=== PATIENT | female | born 1955 | race Caucasian/White ===

== ENCOUNTER 2018-07-18 10:48 | Emergency (ER) | payer MEDICAID ==
[~2018-07-18] VITALS: Ht 154.9 cm; Wt 98.0 kg
[2018-07-18 10:59] VITALS: Ht 154.9 cm; Wt 98.0 kg
[2018-07-18 14:02] LABS: UA SPECIFIC GRAVITY 1.025 (1.005-1.035); microscopic required? YES
[2018-07-18 14:03] LABS: urine erythrocyte NEGATIVE (NEGATIVE)
[2018-07-18 16:15] VITALS: BP 158/86
== END 2018-07-18 16:16 | disposition home or self-care (01) ==
LOC: ED 10:48
PROVIDERS: Emergency Medicine
DX: M51.36 Other intervertebral disc degeneration, lumbar region (principal); M19.90 Unspecified osteoarthritis, unspecified site; N39.0 Urinary tract infection, site not specified; I10 Essential (primary) hypertension; E11.9 Type 2 diabetes mellitus without complications; E78.00 Pure hypercholesterolemia, unspecified; E66.01 Morbid (severe) obesity due to excess calories; Z68.41 Body mass index [BMI] 40.0-44.9, adult
CPT/HCPCS: 36415; J1100; J1885; Q0092

== ENCOUNTER 2018-09-14 11:25 | Emergency (ER) | payer MEDICAID ==
[~2018-09-14] VITALS: Ht 160 cm; Wt 96.6 kg
[2018-09-14 11:26] VITALS: Ht 160 cm; Wt 96.6 kg
[2018-09-14 12:38] LABS: microscopic required? YES; urine erythrocyte NEGATIVE (NEGATIVE)
[2018-09-14 16:56] VITALS: BP 145/69
== END 2018-09-14 16:56 | disposition home or self-care (01) ==
LOC: ED 11:25
PROVIDERS: Emergency Medicine
DX: M54.16 Radiculopathy, lumbar region (principal); I10 Essential (primary) hypertension; E78.00 Pure hypercholesterolemia, unspecified; M19.90 Unspecified osteoarthritis, unspecified site
CPT/HCPCS: J1885; J2060; J3010

== ENCOUNTER 2019-08-23 09:02 | Emergency (ER) | payer SELFPAY ==
[~2019-08-23] VITALS: Ht 152.4 cm; Wt 94.8 kg
[2019-08-23 09:21] VITALS: Ht 152.4 cm; Wt 94.8 kg
[2019-08-23 09:56] LABS: UA SPECIFIC GRAVITY >=1.030 (1.005-1.035); microscopic required? YES; urine erythrocyte NEGATIVE (NEGATIVE)
[2019-08-23 10:02] LABS: BASOPHIL % 0.7 % (0-2); PLATELET COUNT 177 x10^3mcL (130-400); RED CELL DISTRIBUTION WIDTH 13.9 % (11.5-14.5)
[2019-08-23 10:26] LABS: ALBUMIN 3.3 g/dL (3.4-5.0); ALKALINE PHOSPHATASE 102 U/L (46-116); ALT/SGPT 52 U/L (14-59); AST/SGOT 25 U/L (15-37); BILIRUBIN TOTAL 0.4 mg/dL (0.20-1.00); CARBON DIOXIDE 25.5 mmol/L (21-32); CHLORIDE SERUM 108 mmol/L (98-107); CHOLESTEROL 170 mg/dL (<200); CREATININE SERUM 0.6 mg/dL (0.6-1.0); GFR1 > 60 mL/min; GLUCOSE SERUM 178 mg/dL (74-106); LIPASE 178 IU/L (73-393); POTASSIUM SERUM 3.2 mmol/L (3.5-5.1); SODIUM SERUM 143 mmol/L (136-145); TOTAL PROTEIN, SERUM 6.4 g/dL (6.4-8.2)
[2019-08-23 14:55] VITALS: BP 142/78
== END 2019-08-23 14:55 | disposition home or self-care (01) ==
LOC: ED 09:02
PROVIDERS: Emergency Medicine
DX: R10.12 Left upper quadrant pain (principal); R10.32 Left lower quadrant pain; R91.1 Solitary pulmonary nodule; E46 Unspecified protein-calorie malnutrition; E11.9 Type 2 diabetes mellitus without complications; I10 Essential (primary) hypertension; L30.9 Dermatitis, unspecified; E78.00 Pure hypercholesterolemia, unspecified; Z98.61 Coronary angioplasty status
CPT/HCPCS: 83880; J1885; J2405; J3010; Q0092